=== PATIENT | male | born 1985 | race American Indian/Alaskan Native ===

== ENCOUNTER 2018-06-14 22:31 | Emergency (ER) | payer OTHER ==
[~2018-06-14] VITALS: Ht 185.4 cm; Wt 129.7 kg
--- OUTSIDE RECORDS SUMMARY | ~2018-06-14 | XMS | Clinical Summary ---
Demographics + + + | Address | [address] [place] [address] Road | | | [place] [address] | + + + | Home Phone | | + + + | Preferred Language | Unknown | + + + | Marital Status | Single | + + + | Uatsdin Affiliation | Unknown | + + + | Race | Unknown | + + + | Ethnic Group | Unknown | + + + Author + + + | Author | [facility] | | | and Jorgeana | + + + | Organization | [facility] | | | and Jorgeana | [...] [place], [place] | | | | | [address] | | + + + + + | Geraldo Branch | ECON | [address] | | | | | [place] | | | | | [address] | | + + + + + Care Team Providers + +------+ + | Care Associate Theatre Professor Name | Role | Phone | + [...] +---------+--------+ | [place] | MEDICA | [id number] | 12/28/ | [phone] | | Medica | | | ID | | 2013-P | 2 | | id | | | [place] | | resent | | | | + +--------+ +--------+ +---------+--------+ | [facility] | IHS | [id number] | | | | Indemn | | [...] Person | Self | [birth year] | | [address] | | | al/Fam | | 1986 | [phone] | [place] | | | [place] | | | 2 (Home) | [address] | + +--------+ +--------+ + + Advance Directives Patient has advance care planning documents on file. For more information, please contact:[facility] [place] [address]
--- OUTSIDE RECORDS SUMMARY | ~2018-06-14 | XMS | Clinical Summary ---
Demographics + + + | Address | [address] [place] [address] Road | | | [place] [address] | + + + | Home Phone | | + + + | Preferred Language | Unknown | + + + | Marital Status | Single | + + + | Sikh Affiliation | Unknown | + + + | Race | Unknown | + + + | Ethnic Group | Unknown | + + + Author + + + | Author | [facility] | | | and Jorgeana | + + + | Organization | [facility] | | | and Jorgeana [...] [place], [place] | | | | | [address] | | + + + + + | Geraldo Branch | ECON | [address] | | | | | [place] | | | | | [address] | | + + + + + Care Team Providers + +------+ + | Care Jailor Name | Role | Phone | + [...] +---------+--------+ | [place] | MEDICA | [id number] | 12/28/ | [phone] | | Medica | | | ID | | 2013-P | 2 | | id | | | [place] | | resent | | | | + +--------+ +--------+ +---------+--------+ | [facility] | IHS | [id number] | | | | Indemn | | [...] Person | Self | [birth year] | | [address] | | | al/Fam | | 1986 | [phone] | [place] | | | [place] | | | 2 (Home) | [address] | + +--------+ +--------+ + + Advance Directives Patient has advance care planning documents on file. For more information, please contact:Janna [facility] and [facility] [place] [address]
[~2018-06-14 22:31] MED LIST: BACLOFEN20 MG PO; CYCLOBENZAPRINE10 MG PO; FORTAMET1000 MG PO; IBUPROFEN800 MG PO; LYRICA50 MG PO
== END 2018-06-14 23:09 | disposition home or self-care (01) ==
LOC: ED 22:31
DX: S83.91XA Sprain of unspecified site of right knee, initial encounter (principal); W18.30XA Fall on same level, unspecified, initial encounter
CPT/HCPCS: 96372; 99283-25; J1885

== ENCOUNTER 2018-07-24 12:16 | Emergency (ER) | payer OTHER ==
[~2018-07-24] VITALS: Ht 185.4 cm; Wt 129.7 kg
--- OUTSIDE RECORDS SUMMARY | ~2018-07-24 | XMS | Encounter Summary ---
Demographics + + + | Address | [address] | | | [place] [address] | + + + | Home Phone | | + + + | Preferred Language | Unknown | + + + | Marital Status | Unknown | + + + | Orthodox Affiliation | Unknown | + + + | Race | Unknown | + + + | Ethnic Group | Unknown | + + + Author + + + | Author | [facility] | + + + | Organization | [facility] | + + + | Address | Unknown | + + + | Phone | Unavailable | + + + Care Team Providers + +------+ + | Care Lace Roller Operator Name | Role | Phone | + +------+ + PCP | Unavailable | + +------+ + Encounter Details +--------+ + + + + | Date | Type | Department | Care Team | Description | +--------+ + + + + | 07/10/ | Documentati | [facility] | Bailee Go, | | | 2019 | on Only | [facility] | [address] | | | | | [address] | [address] [place] | | | | | [place] | [address] | | | | | [address] | | | | | | [phone] | | | +--------+ + + + + Social History + +-------+ +--------+------+ | Tobacco Use | Types | Packs/Day | Years | Date | | | | | Used | | + +-------+ +--------+------+ | Never Assessed | | | | | + +-------+ +--------+------+ + + + | Sex Assigned at | Date Recorded | | | | + + + | Not on file | | + + + as of this encounter Progress Notes Tiera Hogan N - 07/10/2018 10:44 AM PDTNeurology referralin this encounter Plan of Treatment +--------+---------+ + + + | Date | Type | Specialty | Care Team | Description | +--------+---------+ + + + | 10/17/ | Office | Neurology | Bailee Go, | | | 2018 | Visit | | MD Merlyn Jerome | | | | | | [place] | | | | | | [id number] | | | | | | | | +--------+---------+ + + + as of this encounter Visit Diagnoses Not on filein this encounter"
--- OUTSIDE RECORDS SUMMARY | ~2018-07-24 | XMS | Clinical Summary ---
Demographics + + + | Address | [address] [place] [address] Road | | | [place] [address] | + + + | Home Phone | | + + + | Preferred Language | Unknown | + + + | Marital Status | Single | + + + | Church Affiliation | Unknown | + + + | Race | Unknown | + + + | Ethnic Group | Unknown | + + + Author + + + | Author | [facility] [place] [facility] | | | and Jrogeana | + + + | Organization | [facility] [place] [facility] | | | and Jorgeana | + + + | Address | Unknown | + + + | Phone | Unavailable | + + + Support + + + + + | Name | Relationship | Address | Phone | + + + + + | Nena García | ECON | [address] | | | | | [place], [place] | | | | | [address] | | + + + + + | Geraldo Branch | ECON | [address] | | | | | [place] | | | | | [address] | | + + + + + Care Team Providers + +------+ + | Care Audio Engineer Name | Role | Phone | + +------+ + | Scott Baker PA-C | PP | | + +------+ + Allergies No Known Allergies Medications + + + +---------+------+------+-------+ | Medication | Sig | Dispensed | Refills | Star | End | Statu | | | | | | t | Date | s | | | | | | Date | | | + + + +---------+------+------+-------+ | metformin | Take 1,000 mg by | | 0 | | | Activ | | (GLUCOPHAGE) 1000 MG | mouth 2 times daily | | | | | e | | tablet | (with breakfast & | | | | | | | | dinner). | | | | | | + + + +---------+------+------+-------+ | lisinopril | Take 10 mg by mouth | | 0 | | | Activ | | (PRINIVIL, ZESTRIL) | Daily. | | | | | e | | 10 mg tablet | | | | | | | + + + +---------+------+------+-------+ | baclofen | Take 1 tablet by | 120 | 4 | 03/1 | | Activ | | (LIORESAL) 20 mg | mouth 4 times daily. | tablet | | 20 | | e | | tabletIndications: | | | | 15 | | | | Trigeminal neuralgia | | | | | | | + + + +---------+------+------+-------+ | pregabalin | Take 1 capsule by | 180 | 2 | 04/30 | | Activ | | (LYRICA) 25 mg | mouth 3 times daily. 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 | + + + | Hypertension | | + + + | High cholesterol | | + + + | Diabetes | | + + + Family History + + +------+ + | Medical History | Relation | Name | Comments | + + +------+ + | Heart failure | Brother | | | + + +------+ + | Arthritis | Father | | | + + +------+ + | Diabetes | Father | | | + + +------+ + | Liver cancer | Mother | | | + + +------+ + + +------+ + + | Relation | Name | Status | Comments | + +------+ + + | Brother | | | Heart Failure | | | | (Age | | | | | 40) | | + +------+ + + | Father | | | | + +------+ + + | Mother | | | Liver failure | | | | (Age | | | | | 61) | | + +------+ + + Social History + +-------+ +--------+------+ | Tobacco Use | Types | Packs/Day | Years | Date | | | | | Used | | + +-------+ +--------+------+ | Current Some Day | | | | | | Smoker | | | | | + +-------+ +--------+------+ + +------+---+---+ | Smokeless Tobacco: | Chew | | | | Former User | | | | + +------+---+---+ + + | Comments: trying to quit | + + + + +---------+ + | Alcohol Use | Drinks/We | oz/Week | Comments | | | ek | | | + + +---------+ + | Yes | | | social | + + +---------+ + + + + | Sex Assigned at | Date Recorded | | | | + + + | Not on file | | + + + + + + + | Job Start Date | Occupation | Industry | + + + + | Not on file | Not on file | Not on file | + + + + + + + + | Travel History | Travel Start | Travel End | + + + + + + | No recent travel history available. | + + Last Filed Vital Signs + + + + | Vital Sign | Reading | Time Taken | + + + + | Blood Pressure | 129/88 | 05/16/2014 1336 PDT | + + + + | Pulse | 101 | 05/16/2014 1336 PDT | + + + + | Temperature | - | - | + + + + | Respiratory Rate | 16 | 05/16/20141335 PDT | + + + + | Oxygen Saturation | - | - | + + + + | Inhaled Oxygen | - | - | | Concentration | | | + + + + | Weight | 129.3 kg (285 lb) | 05/16/20141335 PDT | + + + + | Height | 185.4 cm (6' 1") | 05/16/20141335 PDT | + + + + | Body Mass Index | 37.6 | 05/16/2014 1336 PDT | + + + + Plan of Treatment + + + + + | Health Maintenance | Due Date | Last Done | Comments | + + + + + | Vaccine: | | | | | Dtap/Tdap/Td (1 - | 3 | | | | Tdap) | | | | + + + + + | Vaccine: Influenza | | | | | (Season Ended) | 9 | | | + + + + + Results Not on filefrom Last 3 Months Insurance + +--------+ +--------+ +---------+--------+ | Payer | Benefi | Subscriber | Effect | Phone | Address | Type | | | t Plan | ID | manda | | | | | | / | | Dates | | | | | | Group | | | | | | + +--------+ +--------+ +---------+--------+ | [place] | MEDICA | [id number] | 12/28/ | [phone] | | Medica | | | ID | | 2013-P | 2 | | id | | | [place] | | resent | | | | + +--------+ +--------+ +---------+--------+ | [facility] | IHS | [id number] | | | | Indemn | | SERVICE | YELLOW | | 014-Pr | | | ity | | | [place] | | esent | | | | + +--------+ +--------+ +---------+--------+ + +--------+ +--------+ + + | Guarantor Name | Accoun | Relation to | Date | Phone | Billing Address | | | t Type | Patient | of | | | | | | | | | | + +--------+ +--------+ + + | Isaiah Branch | Person | Self [birth year] | | [address] | | | al/Fam | | 1986 | [phone] | [place] | | | [place] | | | 2 (Home) | [address] | + +--------+ +--------+ + + Advance Directives Patient has advance care planning documents on file. For more information, please contact:Janna [facility] [address]
--- OUTSIDE RECORDS SUMMARY | ~2018-07-24 | XMS | Encounter Summary ---
Demographics + + + | Address | [address] | | | [place] [address] | + + + | Home Phone | | + + + | Preferred Language | Unknown | + + + | Marital Status | Unknown | + + + | Yazidism Affiliation | Unknown | + + + | Race | Unknown | + + + | Ethnic Group | Unknown | + + + Author + + + | Author | [facility] | + + + | Organization | [facility] | + + + | Address | Unknown | + + + | Phone | Unavailable | + + + Care Team Providers + +------+ + | Care Senior Category Manager Name | Role | Phone | + +------+ + PCP | Unavailable | + +------+ + Encounter Details +--------+ + + + + | Date | Type | Department | Care Team | Description | +--------+ + + + + | 07/10/ | Documentati | [facility] | Bailee Go, | | | 2019 | on Only | [facility] | [address] | | | | | [address] | [address] [place] | | | | | [place] | [address] | | | | | [address] | | | | | | [phone] | | | +--------+ + + + [...] [place] | | | | | | [address] | | | | | | | | +--------+---------+ + + + as of this encounter Visit Diagnoses Not on filein this encounter"
--- OUTSIDE RECORDS SUMMARY | ~2018-07-24 | XMS | Clinical Summary ---
Demographics + + + | Address | [address] [place] [address] ROAD | | | [place] [address] | + + + | Home Phone | | + + + | Preferred Language | Unknown | + + + | Marital Status | Unknown | + + + | Anglican Affiliation | Unknown | + + + | Race | Unknown | + + + | Ethnic Group | Unknown | + + + Author + + + | Author | [facility] | + + + | Organization | [facility] | + + + | Address | Unknown | + + + | Phone | Unavailable | + + + Care Team Providers + +------+ + | Care Hematology Technician Name | Role | Phone | + +------+ + PP | Unavailable | + +------+ + Allergies Not on File Current Medications Not on file Active Problems Not on file Encounters +--------+ + + + + | Date | Type | Specialty | Care Team | Description | +--------+ + + + + | 07/10/ | Documentati | | Bailee Go, | | | 2019 | on Only | | MD | | +--------+ + + + + from Last 3 Months Social History + +-------+ +--------+------+ | Tobacco [...] on file | | + + + Plan of Treatment +--------+---------+ + + + | Date | Type | Specialty | Care Team | Description | +--------+---------+ + + + | 10/17/ | Office | | Bailee Go, | | | 2018 | Visit | | MD Merlyn Jerome | | | | | | [place] | | | | | | [address] | | | | | | | | +--------+---------+ + + + + + + + + | Health [...] + Results Not on filefrom Last 3 Months"
--- OUTSIDE RECORDS SUMMARY | ~2018-07-24 | XMS | Clinical Summary ---
Demographics + + + | Address | [address] [place] [address] ROAD | | | [place] [address] | + + + | Home Phone | | + + + | Preferred Language | Unknown | + + + | Marital Status | Unknown | + + + | Christianity Affiliation | Unknown | + + + | Race | Unknown | + + + | Ethnic Group | Unknown | + + + Author + + + | Author | [facility] | + + + | Organization | [facility] | + + + | Address | Unknown | + + + | Phone | Unavailable | + + + Care Team Providers + +------+ + | Care Pe Teacher Name | Role | Phone | + [...] [place] | | | | | | [address] | | | | | | | [...]
--- OUTSIDE RECORDS SUMMARY | ~2018-07-24 | XMS | Clinical Summary ---
Demographics + + + | Address | [address] [place] [address] Road | | | [place] [address] | + + + | Home Phone | | + + + | Preferred Language | Unknown | + + + | Marital Status | Single | + + + | Restoration Affiliation | Unknown | + + + | Race | Unknown | + + + | Ethnic Group | Unknown | + + + Author + + + | Author | [facility] | | | and Jorgeana | + + + | Organization | [facility] | | | and Jorgeana [...] [place], [place] | | | | | [address] | | + + + + + | Geraldo Branch | ECON | [address] | | | | | [place] | | | | | [address] | | + + + + + Care Team Providers + +------+ + | Care District Court Reporter Name | Role | Phone | + [...] +---------+--------+ | [place] | MEDICA | [id number] | 12/28/ | [phone] | | Medica | | | ID | | 2013-P | 2 | | id | | | [place] | | resent | | | | + +--------+ +--------+ +---------+--------+ | [facility] | IHS | [id number] | | | | Indemn | | [...] Person | Self | [birth year] | | [address] | | | al/Fam | | 1986 | [phone] | [place] | | | [place] | | | 2 (Home) | [address] | + +--------+ +--------+ + + Advance Directives Patient has advance care planning documents on file. For more information, please contact:[facility] [place] [address]
--- OUTSIDE RECORDS SUMMARY | 2018-07-24 12:20 | XMS ---
PreManage Notification: RASHIDA HER Security Facs Teacher Events No recent Security Events currently on file CRITERIA MET - DAVEP CARE PROVIDERS Marcos [place] Treatment Current PHONE: Unknown Nella has no Care Guidelines for this patient. EIsabel VISIT COUNT (12 MO.) 2 MAXIMINO [facility]ess TOTAL 2 NOTE: Visits indicate total known visits. ED/UCC VISIT TRACKING (12 MO.) 07/24/2018 12:18 [facility] [place] TYPE: Emergency COMPLAINT: - RIGHT ARM SKIN PROBLEM 06/14/2018 22:31 [facility] [place] TYPE: Emergency COMPLAINT: - R KNEE PAIN DIAGNOSES: - Sprain of unspecified site of right knee, initial encounter - Fall on same level, unspecified, initial encounter INPATIENT VISIT TRACKING (12 MO.) No inpatient visits to display in this time frame [email or web address]
[2018-07-24] MEDS ORDERED: AUGMENTIN 875-1 EACH PO (13:05)
[2018-07-24] MEDS ORDERED: DOXYCYCLINE HY100 MG PO (13:05)
[2018-07-24] MEDS ORDERED: NORCO 5-325 TA1 EACH PO (14:09)
[2018-07-26] MEDS ORDERED: VALACYCLOVIR1000 MG PO (13:43)
[2018-07-26] MEDS ORDERED: ROBAXIN-750750 MG (13:44)
[2018-07-26] MEDS ORDERED: LISINOPRIL10 MG PO (13:45)
[2018-07-26] MEDS ORDERED: VITAMIN D35000 UNIT PO (13:45)
[2018-07-26] MEDS ORDERED: IBUPROFEN600 MG PO (13:46)
[2018-07-26] MEDS ORDERED: METFORMIN HCL500 MG PO (13:46)
[2018-07-27] MEDS ORDERED: NORCO 5-325 TA1 EACH PO (14:26)
== END 2018-07-24 14:30 | disposition home or self-care (01) ==
LOC: ED 12:16
PROC: 0H9BXZZ Drainage of Right Upper Arm Skin, External Approach (ICD-10-PCS; principal; 2018-07-24)
DX: S51.851A Open bite of right forearm, initial encounter (principal); L08.9 Local infection of the skin and subcutaneous tissue, unspecified; E11.9 Type 2 diabetes mellitus without complications; W55.11XA Bitten by horse, initial encounter
CPT/HCPCS: 10060; 99283-25; J0295

== ENCOUNTER 2020-11-25 03:49 | Emergency (ER) | payer OTHER ==
[~2020-11-25] VITALS: Ht 185.4 cm; Wt 128.7 kg
[~2020-11-25 03:49] MED LIST changes: +AUGMENTIN 875-1 EACH PO; +DOXYCYCLINE HY100 MG PO; +IBUPROFEN600 MG PO; +LISINOPRIL10 MG PO; +METFORMIN HCL500 MG PO; +NORCO 5-325 TA1 EACH PO; +ROBAXIN-750750 MG; +VALACYCLOVIR1000 MG PO; +VITAMIN D35000 UNIT PO
[2020-11-25] MEDS ORDERED: DOXYCYCLINE HY100 MG PO (04:26)
[2020-11-25] MEDS ORDERED: HYDROCODON-ACE1 EA10 PO (04:26)
== END 2020-11-25 04:37 | disposition home or self-care (01) ==
LOC: ED 03:49
PROC: 0H9AXZZ Drainage of Inguinal Skin, External Approach (ICD-10-PCS; principal; 2020-11-25)
DX: L02.214 Cutaneous abscess of groin (principal); E11.9 Type 2 diabetes mellitus without complications; I10 Essential (primary) hypertension; G50.0 Trigeminal neuralgia; Z87.891 Personal history of nicotine dependence
CPT/HCPCS: 10060; 87070; 87205; 99283-25